=== PATIENT | female | born 1980 | race African-American/Black ===

== ENCOUNTER 2017-10-12 18:40 | Emergency (ER) | payer MEDICAID ==
[~2017-10-12] VITALS: Ht 175.3 cm; Wt 80.3 kg
[2017-10-12] MEDS ORDERED: LISINOPRIL20 MG ORAL (18:54)
--- NOTE | 2017-10-12 19:11 | Emergency Room Report ---
History of Present Illness General Chief Complaint: Abdominal Pain Source: Patient Present Illness HPI Is a 37-year-old female with history of high blood pressure. She has IUD placed about 2-1/2 years ago. She presents with pelvic pain. Also with urinary frequency and slight urgency. Also with some spotting. She thinks the IUD has been dislodged or moves. Reason for this because she having pain and she can't feel the string anymore. Patient denies any vomiting. No diarrhea. Pain is 7/10. Allergies: Coded Allergies: No Known Allergies (Unverified , 10/12/17) Patient History Past Medical History: see triage record, old chart reviewed, HTN Past Surgical History: none Pertinent Family History: none Social History: Denies: smoking Last Menstrual Period: IUD Now: No Immunizations: other Reviewed Nursing Documentation: PMH: Agreed, PSxH: Agreed Nursing Documentation-PMH Past Medical History: No History, Except For Hx Hypertension: Yes Review of Systems Eye: Denies: eye pain, blurred vision ENT: Denies: ear pain, nose congestion, throat swelling Respiratory: Denies: cough, shortness of breath Cardiovascular: Denies: chest pain, palpitations Gastrointestinal: Reports: abdominal pain, Denies: diarrhea, nausea, vomiting Genitourinary: Reports: frequency Musculoskeletal: Denies: back pain, joint pain Skin: Denies: rash Neurological: Denies: headache, numbness Endocrine: Denies: increased thirst, increased urine Hematologic/Lymphatic: Denies: easy bruising All Other Systems: negative except mentioned in HPI Physical Exam Vital Signs Date Time Temp Pulse Resp B/P (MAP) Pulse Ox O2 Delivery O2 Flow Rate FiO2 10/12/17 18:48 98.4 99 16 189/118 99 Room Air vitals with high-pressure Sp02 EP Interpretation: reviewed, normal General Appearance: well appearing, no apparent distress, alert Head: normocephalic, atraumatic Eyes: bilateral eye PERRL, bilateral eye EOMI ENT: hearing grossly normal, normal pharynx Neck: full range of motion, supple, no meningismus Respiratory: chest non-tender, lungs clear, normal breath sounds Cardiovascular #1: regular rate, rhythm, no murmur Gastrointestinal: normal bowel sounds, non tender, no mass, no organomegaly, no bruit, non-distended Genitourinary: other - 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 The IUD string is still intact. There is whitish discharge. No cervical motion tenderness. No bleeding. Musculoskeletal: back normal, gait/station normal, normal range of motion Psychiatric: mood/affect normal Skin: warm/dry Medical Decision Making Diagnostic Impression: Primary Impression: Bacterial vaginosis ER Course Is presents with pelvic pain and has bacterial vaginosis. No evidence of UTI. Not . The main reason she is here was because she want her IUD to be taken out. I told patient that she need to see her emerging solutions executive for it she asked if there was a emerging solutions executive in the ER to do it. Explained to her that there is no one here. Is otherwise stable. She is here emerging solutions executive to have the IUD removed. Patient came back from CT scan and left without letting anybody know. I called the phone number on record and no answer. No evidence of acute abdomen. I wanted to prescribe her Flagyl but she left already. CT/MRI/US Diagnostic Results CT/MRI/US Diagnostic Results : Imaging Test Ordered: CT pelvis Impression negative per radiologist Last Vital Signs Date Time Temp Pulse Resp B/P (MAP) Pulse Ox O2 Delivery O2 Flow Rate FiO2 10/12/17 18:48 98.4 99 16 189/118 99 Room Air Status: improved Disposition: ELOPED Condition: Stable Referrals: NON PHYSICIAN (PCP) JAI CLINTON M.D. Oct 12, 2017 19:11
[2017-10-12 19:34] LABS: APPEARANCE,URINE CLEAR; KETONES,URINE NEGATIVE (NEGATIVE); LEUKOCYTE ESTERASE ,URINE NEGATIVE (NEGATIVE); NITRITE,URINE NEGATIVE (NEGATIVE); PH,URINE 5 (4.5-8.0); PROTEIN,URINE NEGATIVE (NEGATIVE); UROBILINOGEN,URINE NORMAL MG/DL (0.0-1.0)
[2017-10-12 20:10] VITALS: BP 189/118
[2017-10-12 20:13] LABS: SQUAMOUS EPITHELIAL CELL,UR FEW /LPF (NONE/OCC); WBC,URINE 0-2 /HPF (0 - 2)
[2017-10-12 20:14] LABS: BACTERIA,URINE FEW /HPF
--- NOTE | 2017-10-13 10:27 | Diagnostic Imaging Report ---
Indication: Abdominal pain, pelvic pain of urinary frequency and urgency Technique: Spiral acquisitions obtained through the abdomen and pelvis. No oral contrast utilized, per emergency room physician request No IV contrast utilized, per referring physician request.. Multiplanar reconstructions were generated. Total dose length product 820 mGycm. CTDIvol(s) 16 mGy. Dose reduction achieved using automated exposure control Comparison: None Findings: The appendix is normal. There is no evidence of diverticulosis or diverticulitis. No small bowel distention. No free or loculated intraperitoneal air or fluid. The Lack of IV contrast limits assessment of the solid organs. The liver, gallbladder, bile ducts, pancreas, spleen, adrenals, kidneys are unremarkable. No retroperitoneal or mesenteric mass or adenopathy. Uterus is prominent, retroverted. There is an intrauterine device in place, which appears to be predominantly within the endocervical canal and lower endometrium. Bilateral ovarian follicles are demonstrated. Prominent but not frankly enlarged lymph nodes are seen in the bilateral inguinal regions. The included lung bases are clear. Mild degenerative changes are seen at the thoracolumbar junction. The bones are unremarkable otherwise. Impression: No acute abnormality Possibly somewhat low position of uterine device. Consider ultrasound for better characterization graph This agrees with the preliminary interpretation provided overnight by [facility]. The CT scanner at [facility] is accredited by the [employer] and the scans are performed using protocols designed to limit radiation exposure to as low as reasonably achievable to attain images of sufficient resolution adequate for diagnostic evaluation.
== END 2017-10-12 20:10 | disposition left against medical advice (07) ==
LOC: EMR 19:04
DX: N76.0 Acute vaginitis (principal); B96.89 Other specified bacterial agents as the cause of diseases classified elsewhere; I10 Essential (primary) hypertension
CPT/HCPCS: 74176; 81003; 81025; 87210; 99284